=== PATIENT | female | born 1960 | race African-American/Black ===

== ENCOUNTER 2017-08-14 09:25 | Outpatient (CLI) | payer BC ==
--- NOTE | 2017-08-14 15:19 | Nuclear Medicine Report ---
Bone scan: Right breast cancer. Following injection of radionuclide whole-body imaging obtained in approximately 3 hours. There is normal urinary tract activity and a good bone to background ratio. There is a normal physiologic distribution of radionuclide. A small focus of increased radionuclide uptake is identified to the left of the upper sternum on the frontal images and into posterior images similar areas are identified on the left fifth rib and the right fourth rib. Impression: The areas of abnormal uptake have a relatively low suspicion for metastatic disease but cannot be excluded. Consider correlation with CT scan and/or short term followup in 3-6 months.
== END 2017-08-14 09:26 | disposition home or self-care (01) ==
LOC: NM 09:25
PROVIDERS: ATTEND Internal Medicine Hematology & Oncology
DX: C50.411 Malignant neoplasm of upper-outer quadrant of right female breast (principal)
CPT/HCPCS: 78306; A9503